=== PATIENT | male | born 1975 | race Caucasian/White ===

== ENCOUNTER 2019-08-08 22:08 | Emergency (ER) | payer SELFPAY ==
[~2019-08-08] VITALS: Ht 175.3 cm; Wt 79.4 kg
[2019-08-08 22:13] VITALS: BP 150/104; Ht 175.3 cm; Wt 79.4 kg
== END 2019-08-09 00:56 | disposition left against medical advice (07) ==
LOC: ED 22:08
DX: Z53.21 Procedure and treatment not carried out due to patient leaving prior to being seen by health care provider (principal)